=== PATIENT | male | born 1990 | race African-American/Black ===

== ENCOUNTER 2019-08-31 12:38 | Emergency (ER) | payer OTHER ==
[~2019-08-31] VITALS: Ht 177.8 cm; Wt 59.0 kg
[2019-08-31 12:47] VITALS: BP 121/55
--- NOTE | 2019-08-31 12:49 | NUR ---
AMBULATES BACK TO THE LOBBY
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
--- NOTE | 2019-08-31 14:35 | NUR ---
dr renae at bedside evaluating pt.
[2019-08-31 14:42] VITALS: BP 121/55
--- NOTE | 2019-08-31 14:44 | NUR ---
Patient discharged with v/s stable. Written and verbal after care instructions given and explained regarding achillis tendinitis. Patient alert, oriented and verbalized understanding of instructions. Ambulatory with steady gait. All questions addressed prior to discharge. ID band removed. Patient advised to follow up with PMD. Rx of naprosyn given. Patient educated on indication of medication including possible reaction and side effects. Opportunity to ask questions provided and answered.
== END 2019-08-31 14:44 | disposition home or self-care (01) ==
LOC: MED 12:38
DX: M76.61 Achilles tendinitis, right leg (principal)
CPT/HCPCS: 73610; 99283; Q0092